=== PATIENT | female | born 1990 ===

== ENCOUNTER 2018-02-10 03:45 | Emergency (ER) | payer OTHER ==
--- NOTE | 2018-02-10 04:09 | C.PDOC ---
History Of Present Illness 27 y/o female presents to the ED complaining of mid-epigastric and RUQ pain since yesterday. Associated with nausea but no vomiting or diarrhea. Denies associated fever, chills, back pain, or urinary symptoms. Time Seen by Provider: 02/10/18 04:09 Chief Complaint (Nursing): Abdominal Pain History Per: Patient History/Exam Limitations: no limitations Onset/Duration Of Symptoms: Days Current Symptoms Are (Timing): Still Present Severity: Moderate Pain Scale Rating Of: 4 Radiation Of Pain To:: None Quality Of Discomfort: "Pain" Associated Symptoms: Nausea Exacerbating Factors: None Alleviating Factors: None Recent travel outside of the [place]: No Abnormal Vaginal Bleeding: No Last Menstral Period: 01/14/18 Past Medical History Reviewed: Historical Data, Nursing Documentation, Vital Signs Vital Signs: Last Vital Signs Temp 97.5 F L 02/10/18 03:58 Pulse 73 02/10/18 03:58 Resp 16 02/10/18 03:58 BP 114/58 L 02/10/18 03:58 Pulse Ox 98 02/10/18 05:12 - Medical History PMH: No Chronic Diseases Surgical History: No Surg Hx Family History: States: No Known Family Hx - Social History Hx Alcohol Use: Yes Hx Substance Use: No - Immunization History Hx Tetanus Toxoid Vaccination: No Hx Influenza Vaccination: Yes Hx Pneumococcal Vaccination: Yes Review Of Systems Constitutional: Negative for: Fever, Chills Gastrointestinal: Positive for: Nausea, Abdominal Pain. Negative for: Vomiting , Diarrhea Genitourinary: Negative for: Dysuria, Frequency Musculoskeletal: Negative for: Back Pain Physical Exam - Physical Exam Appears: Non-toxic, No Acute Distress Skin: Warm, Dry Head: Normacephalic Eye(s): bilateral: Normal Inspection Oral Mucosa: Moist Neck: Trachea Midline, Supple Chest: Symmetrical Cardiovascular: Rhythm Regular Respiratory: No Rales, No Rhonchi, No Wheezing Gastrointestinal/Abdominal: Soft, Tenderness (mid-epigastric), No Guarding, No Rebound, Other (obese abdomen) Extremity: Bilateral: Atraumatic, Normal Color And Temperature, Normal ROM Pulses: Left Dorsalis Pedis: Normal, Right Dorsalis Pedis: Normal Neurological/Psych: Oriented x3 Gait: Steady ED Course And Treatment - Laboratory Results Result Diagrams: 02/10/18 04:52 02/10/18 04:52 O2 Sat by Pulse Oximetry: 98 (RA) Pulse Ox Interpretation: Normal Progress Note: Ordered blood work and UA. Patient given IV fluids, Pepcid and Zofran. Disposition Counseled Patient/Family Regarding: Studies Performed, Diagnosis - Disposition Disposition Time: 04:09 Condition: FAIR Forms: [facility] ([place]) - Clinical Impression Clinical Impression: Abdominal pain - Scribe Statement The provider has reviewed the documentation as recorded by the Scribe (Haleigh Witt) Provider Attestation: All medical record entries made by the Scribe were at my direction and personally dictated by me. I have reviewed the chart and agree that the record accurately reflects my personal performance of the history, physical exam, medical decision making, and the department course for this patient. I have also personally directed, reviewed, and agree with the discharge instructions and disposition. Physician Patient Turnover Patient Signed Over To: Lester Gan Handoff Comments: pending CT and dispostion
[2018-02-10] MEDS ORDERED: Sodium Chloride 0.9% 1,000 ML IV ONE (04:26)
[2018-02-10] MEDS ORDERED: Sodium Chloride 0.9% 1,000 ML ONE (04:57)
[2018-02-10 04:58] LABS: HCG,QUALITATIVE URINE NEGATIVE (NEGATIVE)
[2018-02-10 04:59] LABS: SQUAMOUS EPITHIAL 2 /hpf (0-5); URINE BACTERIA RARE (<OCC); URINE BILIRUBIN NEGATIVE (NEGATIVE); URINE BLOOD NEGATIVE (NEGATIVE); URINE CLARITY Hazy (Clear); URINE COLOR Yellow (YELLOW); URINE GLUCOSE (UA) NORMAL (Normal); URINE LEUKOCYTE ESTERASE NEG Leu/uL (Negative); URINE PROTEIN NEGATIVE (NEGATIVE); URINE UROBILINOGEN NORMAL mg/dL (0.2-1.0)
[2018-02-10 05:01] LABS: BASO # 0.1 K/uL (0.0-0.2); BASO % 0.5 % (0.0-2.0); EOS # 0.4 K/uL (0.0-0.7); EOS % 3.9 % (0.0-4.0); LYMPH # 2.6 K/uL (1.0-4.3); LYMPH % 27.2 % (20.0-40.0); MEAN CELL VOLUME 89.1 fL (81.0-99.0); MEAN CORPUSCULAR HEMOGLOBIN 31.2 pg (27.0-31.0); MEAN PLATELET VOLUME 8.6 fL (7.2-11.7); MONO # 0.7 K/uL (0.0-0.8); MONO % 7.5 % (0.0-10.0); NEUT # 5.9 K/uL (1.8-7.0); NEUT % 60.9 % (50.0-75.0); NRBC % 0.1 % (0.0-2.0); RBC 4.47 Mil/uL (3.80-5.20); RED CELL DISTRIBUTION WIDTH 12.3 % (11.5-14.5); WHITE BLOOD COUNT 9.7 K/uL (4.8-10.8)
[2018-02-10 05:03] LABS: PROTHROMBIN TIME 11.7 SECONDS (9.7-12.2)
[2018-02-10 05:08] LABS: ALB/GLOB RATIO 1.2 (1.0-2.1); ALBUMIN 4.3 g/dL (3.5-5.0); ALT/SGPT 36 U/L (9-52); AST/SGOT 25 U/L (14-36); BLOOD UREA NITROGEN 13 mg/dL (7-17); CALCIUM 9.3 mg/dl (8.6-10.4); GFR AFRICAN-AMERICAN > 60; GFR NON-AFRICAN AMERICAN > 60; LIPASE 79 U/L (23-300)
[2018-02-10 07:40] VITALS: RESP 18; O2SAT 99
[2018-02-10] MEDS ORDERED: Iodixanol 320 MG/ML 100 ML BOTTLE IV ONE (08:09)
--- NOTE | 2018-02-10 09:38 | CT ---
CT abdomen and pelvis History: Mid epigastric abdominal pain. Comparison: None available. Technique: Multiple contiguous axial images were performed through the abdomen and pelvis with the use of intravenous contrast. Subsequently, sagittal and coronal reformatted images were obtained. This CT exam was performed using one or more of the following dose reduction techniques: Automated exposure control, adjustment of the mA and/or kV according to patient size, and/or use of iterative reconstruction technique. Findings: Lung bases are clear. No pleural or pericardial effusion. Prominent and enlarged liver with the left hepatic lobe extending to the lateral aspect of the left han abdomen. Liver measures over 26 centimeters in length. In addition, there is prominent diffuse decreased attenuation throughout the liver suggestive for fatty infiltration versus hepatic parenchymal disease. Clinical correlation. Focal areas of probable fatty sparing adjacent to the gallbladder fossa. Gallbladder appears contracted. There is a suggestion of 7 millimeter calculus within the dependent portion of the gallbladder. Clinical correlation. Spleen is preserved. Adrenal glands are preserved. Pancreas is preserved. Upper abdominal bowel is preserved. Right kidney: No calculi or hydronephrosis. Left Kidney: No calculi or hydronephrosis. Calcified phleboliths in the pelvis. Urinary bladder is preserved. Heterogeneous uterus and bilateral adnexa. Moderate to severe fecal retention in the colon. Appendix is visualized and is within normal limits. No significant para-aortic or inguinal nodes. Impression: 1. Moderate to severe fecal retention in the colon. 2. Prominent enlarged liver measuring up to 26 centimeters in length. Diffuse decreased attenuation throughout the liver suggestive for fatty infiltration versus hepatic parenchymal disease. Clinical correlation. Focal areas of probable fatty sparing adjacent to the gallbladder fossa. 3. Contracted gallbladder with associated cholelithiasis. Clinical correlation. This may be better evaluated with right upper quadrant ultrasound if clinically indicated. 4. Additional findings as above.
--- NOTE | 2018-02-10 10:43 | US ---
HISTORY: Right upper quadrant pain COMPARISON: CT abdomen and pelvis performed the same day. TECHNIQUE: Grayscale imaging was performed. FINDINGS: LIVER: Measures 17.2 cm in length. There is diffuse increased echogenicity of the liver parenchyma. No mass. No intrahepatic bile duct dilatation. GALLBLADDER: The gallbladder is contracted and filled with stones. There is focal wall calcification. The sonographic Bazan's sign is negative. COMMON BILE DUCT: Measures 3.8 mm. No stones. No dilatation. PANCREAS: Unremarkable as visualized. No mass. No ductal dilatation. RIGHT KIDNEY: Measures 11.3 cm in length. Normal echogenicity. No calculus, mass, or hydronephrosis. AORTA: No aneurysmal dilatation. IVC: Unremarkable. OTHER FINDINGS: None . IMPRESSION: Mild hepatomegaly and fatty liver. Cholelithiasis.
[2018-02-10 11:44] VITALS: BP 104/68; PULSE 78; TEMP 99
== END 2018-02-10 11:44 | disposition home or self-care (01) ==
LOC: C.ER 03:45
DX: R10.13 Epigastric pain (principal)
CPT/HCPCS: 74177; 76705; 80053; 81001; 83690; 84703; 85025; 85610; 85730; 96361; 96374; 96375; 99285; J2405; J7040; Q9967